=== PATIENT | female | born 1970 | race Hispanic/Latino ===

== ENCOUNTER 2019-02-24 08:30 | Day surgery (SDC) | payer OTHER, MEDICARE ==
[~2019-02-24] VITALS: Ht 147.3 cm; Wt 88.5 kg
[2019-02-24] MEDS ORDERED: SODIUM CHLORIDE 0.9% 1000ML 1,000 ML IV ONE (09:20)
[2019-02-24 09:57] LABS: BASOPHILS % (AUTO) 0.9 % (0.0-5.0); EOSINOPHILS % (AUTO) 2.6 % (0.0-8.0); HEMATOCRIT 46.4 % (36-48); LYMPHOCYTES % (AUTO) 23.3 % (21.0-51.0); MEAN CORPUSCULAR HEMOGLOBIN 32.6 pg (27.0-33.0); MEAN CORPUSCULAR HGB CONC 34.5 g/dL (32.0-36.0); MEAN CORPUSCULAR VOLUME 94.5 fL (79-99); MONOCYTES % (AUTO) 7.9 % (3.0-13.0); NEUTROPHILS % (AUTO) 65.3 % (40.0-77.0); NUCLEATED RED BLOOD CELLS 0.1 % (0.0-0.19); PLATELET COUNT (AUTO) 186 K/uL (130-400); RED BLOOD CELL COUNT(AUTO) 4.91 MIL/uL (4.00-5.50); RED CELL DISTRIBUTION WIDTH 13.3 % (11.0-15.5)
[2019-02-24 10:01] VITALS: BP 134/88
[2019-02-24 10:10] LABS: CREATININE 0.6 mg/dL (0.5-1.5); POTASSIUM 3.6 mmol/L (3.5-5.1)
[2019-02-24] MEDS ORDERED: CARV6.25 PO (10:12)
[2019-02-24] MEDS ORDERED: FUMARATE PO (10:12)
[2019-02-24] MEDS ORDERED: VENL75TA63 PO (10:12)
[2019-02-24] MEDS ORDERED: MIRA25TA PO (10:12)
[2019-02-24] MEDS ORDERED: ATOR40TA69 PO (10:12)
[2019-02-24] MEDS ORDERED: PRAZ2CAP2 PO (10:12)
[2019-02-24] MEDS ORDERED: BUSP15TA3 PO (10:12)
[2019-02-24] MEDS ORDERED: EMPA1TAB7 PO (10:12)
[2019-02-24] MEDS ORDERED: DULA0.75 SQ (10:12)
[2019-02-24 11:53] VITALS: BP 96/49
[2019-02-24 11:58] VITALS: BP 103/66
[2019-02-24 12:03] VITALS: BP 113/64
[2019-02-24 12:08] VITALS: BP 114/75
[2019-02-24 12:18] VITALS: BP 131/63
== END 2019-02-24 12:35 | disposition home or self-care (01) ==
LOC: ENDO 08:30 → DAH 08:30 → ENDO 12:35
PROVIDERS: ATTEND Surgery
DX: R19.5 Other fecal abnormalities (principal); I10 Essential (primary) hypertension; E10.9 Type 1 diabetes mellitus without complications; F32.9 Major depressive disorder, single episode, unspecified; M79.7 Fibromyalgia; Z98.890 Other specified postprocedural states; Z79.899 Other long term (current) drug therapy; Z68.41 Body mass index [BMI] 40.0-44.9, adult; M62.08 Separation of muscle (nontraumatic), other site
CPT/HCPCS: 36415; 45378; 80048; 82948; 85025; A4606; J7030